=== PATIENT | female | born 1990 | race African-American/Black ===

== ENCOUNTER 2023-09-28 04:27 | Inpatient (IN) | payer OTHER, SELFPAY ==
[2023-09-28] VITALS (172 sets, daily range): BP systolic 87–161; BP diastolic 57–118; PULSE 69–126; RESP 18–20; TEMP 36.1–36.8; O2SAT 92–100; BMI 31.8
[2023-09-28 05:08] LABS: Basophils Percent Auto 0.2 % (0.2-1.2); Eosinophils Percent Auto 0.2 % (0-4.4); Hematocrit 36.5 % (37.0-47.0); Hemoglobin 12.4 g/dL (12.0-15.0); Immature Granulocyte Absolute 0.19 K/mm3 (0.00-0.031); Immature Granulocyte Percent A 2.2 % (0-0.5); Lymphocytes Absolute Auto 1.59 K/mm3 (0.9-3.2); Lymphocytes Percent Auto 18.1 % (18.3-44.2); Mean Corpuscular Hemoglobin 31.5 pg (26-34); Mean Corpuscular Volume 92.6 fl (80-100); Mean Platelet Volume 9.6 fl (7.4-10.4); Monocytes Absolute Auto 0.8 K/mm3 (0.1-0.6); Monocytes Percent Auto 9.2 % (2.6-8.5); Neutrophils Absolute Auto 6.1 K/mm3 (1.3-6.7); Neutrophils Percent Auto 70.1 % (45.5-73.1); Platelet Count Result 234 k/mm3 (150-375); Red Blood Count 3.94 M/mm3 (4.2-5.4); Red Cell Distribution Width 12.7 % (11.5-14.5); White Blood Count 8.8 K/mm3 (4.5-10.0)
[2023-09-28] MEDS: LACTATED RINGERS 1,000 ML 125 ML IV CONT ×2 (05:15→06:36)
[2023-09-28] MEDS: fentaNYL CITRATE INJ (*CRX) 100 MCG/2 ML VIAL 50 MCG IV PUSH (05:22)
--- NOTE | 2023-09-28 05:27 | LDADM ---
This patient, TIERRA MCCORD, was admitted to Labor/Delivery/Recovery 103 on 09/28/23 at 04:27. Plans for labor, pain management and were discussed with patient. Patient/family oriented to hospital policies and general routines including ID bracelet, bed and alarms, visiting hours, pain management, procedures, bathroom and other care routines, personal items, smoking policy, room service/diet and guest tray routines, infant security routines, and visiting hours. Patient/Family are encouraged to report perceived risks to care and to ask questions if they do not understand what they are told or what they should do. See OBIX for further documentation.
--- NOTE | 2023-09-28 06:31 | PM.IMHP ---
H&P: HPI History of Present Illness Date/Time: 09/28/23 06:31 Chief Complaint: Rupture of membranes at term Narrative: 32-year-old 2 para 0 whose last menstrual period was , EDC is 10/08/2023, presents at 38 half weeks gestation with spontaneous rupture membranes prior to admission. She was a 2nd trimester transfer but has ultrasounds have shown good growth with normal diabetic screen and negative group B strep. She does desire epidural PMFSH Family History Family History Other No pertinent family history Social History Social History Smoking status: Never smoker Substance use: never Do You Feel Safe in your Home?: Yes Lack of Transportation: No Lack of Food: Never True Current Housing: I Have Housing Concerned About Future Housing: No Difficulty Paying Gas/Electric Bills: No Difficulty Paying for Meds: No Currently Unemployed: No Education: Associate Degree Difficulty w/ Childcare or Family Care: No Spiritual care concerns: No Meds Home Medications and Allergies Home Medications Medication Instructions Recorded Confirmed Type vits no.126-ferrous fum 1 tablet PO DAILY 09/07/23 09/07/23 History 28 mg iron-folic acid 800 mcg tablet (Classic ) Allergies Allergy/AdvReac Type Severity Reaction Status Date / Time No Known Allergies Allergy Verified 09/07/23 13:37 Vital Signs Vital Signs - 24 hr 09/28/23 05:18 09/28/23 05:23 09/28/23 05:28 Temperature Pulse Rate 81 Blood Pressure 87/59 L Pulse Oximetry 97 96 97 Oxygen Delivery 09/28/23 05:31 09/28/23 05:33 09/28/23 05:38 Temperature Pulse Rate 90 Blood Pressure 125/83 Pulse Oximetry 98 99 Oxygen Delivery 09/28/23 05:00 09/28/23 05:43 09/28/23 05:47 Temperature 97.8 F Pulse Rate 77 Blood Pressure 124/104 H Pulse Oximetry 99 Oxygen Delivery 09/28/23 05:48 09/28/23 05:53 09/28/23 05:58 Temperature Pulse Rate Blood Pressure Pulse Oximetry 100 99 100 Oxygen Delivery 09/28/23 06:00 09/28/23 06:03 09/28/23 06:08 Temperature Pulse Rate 72 Blood Pressure 130/86 Pulse Oximetry 99 100 Oxygen Delivery 09/28/23 06:13 09/28/23 06:15 09/28/23 06:18 Temperature Pulse Rate 101 H Blood Pressure 158/103 H Pulse Oximetry 100 100 Oxygen Delivery 09/28/23 06:23 09/28/23 06:28 09/28/23 05:27 Temperature Pulse Rate Blood Pressure Pulse Oximetry 99 100 Oxygen Delivery Room Air Exam Const: General: cooperative, healthy appearing and comfortable Nutritional Appearance: average body habitus Orientation/consciousness: oriented to person, oriented to place and oriented to time Resp: Effort & Inspection: normal respiratory effort Cardio: Rate: regular rate Rhythm: regular rhythm Heart sounds: S1 normal heart sound present and S2 normal heart sound present GI: Inspection: normal to inspection ( soft gravid uterus) : External Female Exam: normal external appearance Speculum Exam - Vagina: normal appearance of the vagina Speculum Exam - Cervix: normal appearance of the cervix ( cervix 3 / 70/-2. Clear fluid seen. FHTs reassuring) H&P: Results Labs Labs: Short CBC 09/28/23 Range/Units 05:02 WBC 8.8 (4.5-10.0) K/mm3 Hgb 12.4 (12.0-15.0) g/dL Hct 36.5 L (37.0-47.0) % Plt Count 234 (150-375) k/mm3 Assessment and Plan Assessment and plan (1) Term : Code(s): Z34.90 - Encounter for supervision of normal , unspecified, unspecified trimester Status: Acute (2) Spontaneous rupture of membranes: Status: Acute Plan will begin Pitocin augmentation. Spontaneous vaginal delivery is expected. She is an epidural candidate
[2023-09-28] MEDS: OXYTOCIN 30 UNITS/NS 500 ML 30 UNITS/500 ML BAG IV CONT (06:35)
--- NOTE | 2023-09-28 07:14 | WPDANESEPPF ---
Anes - Initial Pre Proc Eval Procedure: labor epidural Date/Time: 09/28/23 07:14 Surgeon: Ildefonso Park MD Pre Op Diagnosis: labor pain Pre Op Diagnosis: SROM Patient Data Age: 32 Gender: F Height: 1.73 m Weight: 95 kg Last Vital Signs Temp 36.6 C 09/28/23 05:00 Pulse 82 09/28/23 07:00 BP 106/70 09/28/23 07:00 Pulse Ox 99 09/28/23 07:13 O2 Del Method Room Air 09/28/23 05:27 Allergies Allergy/AdvReac Type Severity Reaction Status Date / Time No Known Allergies Allergy Verified 09/07/23 13:37 Home Medications Medication Instructions Recorded Confirmed Type vits no.126-ferrous fum 1 tablet PO DAILY 09/07/23 09/07/23 History 28 mg iron-folic acid 800 mcg tablet (Classic ) Laboratory Tests 09/28/23 05:02 WBC 8.8 K/mm3 (4.5-10.0) RBC 3.94 L M/mm3 (4.2-5.4) Hgb 12.4 g/dL (12.0-15.0) Hct 36.5 L % (37.0-47.0) MCV 92.6 fl (80-100) MCH 31.5 pg (26-34) MCHC 34.0 g/dl (32-36) RDW 12.7 % (11.5-14.5) Plt Count 234 k/mm3 (150-375) MPV 9.6 fl (7.4-10.4) Immature Gran % (Auto) 2.2 H % (0-0.5) Neut % (Auto) 70.1 % (45.5-73.1) Lymph % (Auto) 18.1 L % (18.3-44.2) [place] % (Auto) 9.2 H % (2.6-8.5) Eos % (Auto) 0.2 % (0-4.4) Baso % (Auto) 0.2 % (0.2-1.2) Lymph # (Auto) 1.59 K/mm3 (0.9-3.2) [place] # (Auto) 0.8 H K/mm3 (0.1-0.6) Eos # (Auto) 0.0 K/mm3 (0-0.3) Baso # (Auto) 0.0 K/mm3 (0.0-0.1) Abs Immat Gran (auto) 0.19 H K/mm3 (0.00-0.031) Absolute Neuts (auto) 6.1 K/mm3 (1.3-6.7) Absolute Nucleated RBC 0.0 K/mm3 (0.0-0.012) Nucleated RBC % 0.0 % (0.0-0.2) RPR Pending Blood Type O Positive Antibody Screen Negative : gestational age (LYN[place] 10/08/23) Patient hx anesthesia problems: none Family hx anesthesia problems: none Results Review: All pre-operative results and documents have been reviewed as part of the pre-operative evaluation. [facility] Family History Family History Other No pertinent family history Social History Social History Smoking status: Never smoker Substance use: never Do You Feel Safe in your Home?: Yes Lack of Transportation: No Lack of Food: Never True Current Housing: I Have Housing Concerned About Future Housing: No Difficulty Paying Gas/Electric Bills: No Difficulty Paying for Meds: No Currently Unemployed: No Education: Associate Degree Difficulty w/ Childcare or Family Care: No Spiritual care concerns: No Anes - Eval Final PreProcedure Day of Procedure 09/28/23 07:14 Neurological: alert and oriented Last oral intake: >/= 8 hours ASA classification: II Emergent: no Anesthetic plan: proceed Anesthesia type and monitoring: regional epidural Results Review: All pre-operative results and documents have been reviewed as part of the pre-operative evaluation. Informed Consent: The patient's anesthetic plan and its attendant risks and benefits were discussed with the patient/family/POA. Questions were solicited and answers provided to the satisfaction of the patient/family/POA.
--- NOTE | 2023-09-28 10:11 | PM.OBPNLAB ---
Pain Control Date/time seen: 09/28/23 10:11 Pain control: tolerating well and epidural Pelvic Exam Dilation (cm): 8 station: 0 Amniotic membrane status: Leaking
--- NOTE | 2023-09-28 12:54 | PM.OBPRVD ---
OB - Vaginal Delivery Note Procedure Delivery date: 09/28/23 Induction method: None Delivery augmentation: Pitocin Delivery monitor: External FHT and Internal Uterine Route of delivery: Episiotomy description: None Laceration Description: None Quantitative Blood Loss (ml): 61 Anesthesia type: Epidural Disposition: Floor Complications: No immediate complications Baby Date of : 09/28/23 Time of : 12:41 Weeks of gestation at delivery: 38 gender: Male Weight (pounds): 7 Weight (ounces): 10 presentation: vertex position: Right Occiput Posterior Placenta delivery description: Spontaneous Cord Vessel Description: 3 Vessels score one minute: 8 score five minutes: 9
--- NOTE | 2023-09-28 12:56 | PM.DS ---
DS: Admitting Diagnosis Discharge Date 09/30/2023 Admitting Diagnosis Term DS: Discharge Diagnosis Discharge Diagnosis (1) Spontaneous rupture of membranes: Status: Acute (2) Term : Code(s): Z34.90 - Encounter for supervision of normal , unspecified, unspecified trimester Status: Acute DS: Summary Hospital Course Reason for hospitalization: patient was admitted in active labor at 38 weeks gestation Hospital Course: patient underwent spontaneous vaginal delivery. Her hospital course unremarkable. She remained afebrile. She was up, voiding without difficulty, eating regular diet, ambulating, generally without complaints. Time Spent with Patient Time attestation: Total time spent providing and/or coordinating discharge services: Exam Const: General: cooperative, healthy appearing and comfortable Nutritional Appearance: average body habitus Orientation/consciousness: oriented to person, oriented to place and oriented to time Resp: Effort & Inspection: normal respiratory effort Cardio: Rate: regular rate Rhythm: regular rhythm Heart sounds: S1 normal heart sound present and S2 normal heart sound present GI: Inspection: normal to inspection DS: Data Data Completed and Pending Labs on day of discharge: Labs from last 24 hours 09/28/23 05:02 WBC 8.8 RBC 3.94 L Hgb 12.4 Hct 36.5 L MCV 92.6 MCH 31.5 MCHC 34.0 RDW 12.7 Plt Count 234 MPV 9.6 Immature Gran % (Auto) 2.2 H Neut % (Auto) 70.1 Lymph % (Auto) 18.1 L [place] % (Auto) 9.2 H Eos % (Auto) 0.2 Baso % (Auto) 0.2 Lymph # (Auto) 1.59 [place] # (Auto) 0.8 H Eos # (Auto) 0.0 Baso # (Auto) 0.0 Abs Immat Gran (auto) 0.19 H Absolute Neuts (auto) 6.1 Absolute Nucleated RBC 0.0 Nucleated RBC % 0.0 RPR Pending Blood Type O Positive Antibody Screen Negative Discharge Plan Discharge Attending physician on discharge: Ildefonso Alejandro Discharging Clinician: Flavia Wood Anticipated Discharge Date/Time: 09/30/23 09:35 Patient Disposition: Home, Self-Care Activity: may shower and pelvic rest Diet: as tolerated Wound Care Instructions: follow printed instructions Discharge Instructions: Education: Mom and Baby Guide Given to: Mother Follow-Up: Call your delivering provider's office for an appointment to be seen in: 4 Weeks Mom and baby should come to the [facility] for the follow-up appointment. Appointment Date/Time: October 01, 2023 at 8:00 am What to expect at your follow-up visit: Physical Assessment Call [phone] if you are unable to keep your appointment time. BREAST CARE: * Wear a snug supportive bra. * For engorgement discomfort: * May apply ice packs EPISIOTOMY/PERINEAL CARE: * Until bleeding stops, use your yecenia bottle after urinating * Change your pad frequently throughout the day * No tub baths until seen by your physician - You may shower ACTIVITY: * Rest as much as possible. * Do not exercise or lift anything heavier than your baby (such as laundry or other children.) * Avoid stairs or driving as much as possible. * Do not put anything into the vagina. No douching, tampons, or sexual activity until seen by physician. NOTIFY PHYSICIAN IF YOU HAVE ANY QUESTIONS OR IF ANY OF THE FOLLOWING SYMPTOMS OCCUR: * If your perineum becomes red, swollen, or more painful than what you have experienced in the hospital. * If your vaginal bleeding becomes foul smelling. * If your vaginal bleeding becomes more heavy than a period or if your bleeding changes from pink to bright red. However, you may pass an occasional walnut-sized clot once or twice for the first week . * If you experience a sharp, shooting pain in you calves. * If you discover a hard, reddened area on your breast or if you experience flu-like symptoms. DIET: * Eat regular, well-balanced meals. * Drink plenty
[2023-09-28] MEDS: OXYTOCIN 30 UNITS/NS 500 ML 30 UNITS/500 ML BAG 125 UNITS IV CONT (13:13)
[2023-09-28] MEDS: ONDANSETRON INJ 4 MG/2 ML VIAL IV PUSH (13:50)
[2023-09-28] MEDS: WITCH HAZEL 40 PADS 1 PAD TOPICAL (14:54)
[2023-09-28] MEDS: BENZOCAINE 20% AER SPR (*SP) 56 GM CAN 1 SPRAY TOPICAL (14:55)
[2023-09-28 16:55] LABS: Rapid Plasma Reagin Non-Reactive (NonReactive)
[2023-09-28] MEDS: POLYSACCHARIDE IRON COMPLEX 150 MG CAPSULE PO (17:36)
[2023-09-28] MEDS: DOCUSATE SODIUM 100 MG CAPSULE PO (17:36)
[2023-09-28] MEDS: IBUPROFEN 600 MG TABLET PO (17:36)
[2023-09-29] MEDS: IBUPROFEN 600 MG TABLET PO ×4 (02:26→22:19)
[2023-09-29 04:35] VITALS: BP 130/82; PULSE 80; RESP 16; TEMP 36
[2023-09-29 05:30] LABS: Hematocrit 32.4 % (37.0-47.0); Hemoglobin 10.8 g/dL (12.0-15.0)
--- NOTE | 2023-09-29 07:46 | PM.OBPNVD ---
OB - PN: Subj Subjective Date/time seen: 09/29/23 07:46 Patient comments: no complaints and pain well controlled baby status: doing well and nursing well OB - PN: Obj Data Labs 09/29/23 04:55 Labs: Laboratory Results - last 24 hr 09/28/23 09/29/23 05:02 04:55 Hgb 10.8 L Hct 32.4 L RPR Non-reactive OB - PN A/P Plan day: 1 Plan: routine care Time Spent With Patient Time: Total time spent is greater than 50% in coordination of care (as documented) at patient's floor/unit and/or counseling patient: Time with patient: less than 15 minutes Exam Const: General: cooperative, healthy appearing and comfortable Nutritional Appearance: average body habitus Orientation/consciousness: oriented to person, oriented to place and oriented to time HENMT: Head: normal to inspection Resp: Effort & Inspection: normal respiratory effort Cardio: Rate: regular rate Rhythm: regular rhythm Heart sounds: S1 normal heart sound present and S2 normal heart sound present GI: Inspection: normal to inspection
--- NOTE | 2023-09-29 08:02 | WPDANLDPN2 ---
Anes-Prog Note L&D Date/Time: 09/29/23 08:02 Comfortable throughout: labor and delivery Neuraxial method: epidural Epidural/Spinal procedure site: clean & non-tender Neuro status: Neuro function grossly intact. Cardiovascular status: normal Respiratory status: normal Airway patency: baseline Mental status: baseline Post-Op hydration status: normal Vital Signs: Last Vital Signs Temp 36.0 C L 09/29/23 04:35 Pulse 80 09/29/23 04:35 Resp 16 09/29/23 04:35 BP 130/82 09/29/23 04:35 Pulse Ox 100 09/28/23 15:30 O2 Del Method Room Air 09/28/23 15:30 Pain score (VAS): 08/22 Post-procedural complaints: none Patient feedback: Patient satisfied with anesthetic care.
[2023-09-29 08:34] VITALS: TEMP 37
[2023-09-29] MEDS: MULTIVIT/MIN/PREN/FOL AC/IRON TABLET 1 TAB PO (08:35)
[2023-09-29 08:45] VITALS: BP 105/58; PULSE 73; RESP 18; TEMP 37; O2SAT 98
[2023-09-29] MEDS: ACETAMINOPHEN 325 MG TABLET 650 MG PO (10:26)
--- NOTE | 2023-09-29 17:01 | PC.NURSE ---
On 09/29/23, the student, Gini Gallo, provided care and completed [facility] documentation on this patient. I have reviewed the student's documentation and agree with the findings.
[2023-09-29 22:23] VITALS: BP 118/72; PULSE 85; RESP 18; TEMP 36.3; O2SAT 99
[2023-09-30] MEDS: IBUPROFEN 600 MG TABLET PO (06:04)
[2023-09-30] MEDS: MEASLES,MUMPS,RUBELLA VACCINE 0.5 ML VIAL SUB-Q (07:48)
[2023-09-30] MEDS: ACETAMINOPHEN 325 MG TABLET 650 MG PO (07:55)
[2023-09-30] MEDS: DIBUCAINE 1% OINTMENT 30 GM TUBE 1 APPLIC TOPICAL (07:56)
[2023-09-30 08:05] VITALS: BP 133/81; PULSE 109; RESP 18; TEMP 36.4; O2SAT 100
--- NOTE | 2023-09-30 09:34 | PM.OBPNVD ---
OB - PN: Subj Subjective Date/time seen: 09/30/23 09:25 Interval history: Doing well. Urinating without difficulty. Denies passing any large clots. Denies dizziness with ambulating. Tolerating po food and fluids. Bonding with . Patient comments: no complaints and pain well controlled baby status: doing well and bottle feeding well [place] feeding status: exclusively bottle feeding OB - PN: Obj Data Labs 09/29/23 04:55 OB - PN A/P Plan day: 2 Plan: discharge home Time Spent With Patient Time: Total time spent is greater than 50% in coordination of care (as documented) at patient's floor/unit and/or counseling patient: Review of Systems Review of Systems: All systems reviewed & are unremarkable except as noted in HPI and below Exam Narrative: Alert and oriented. Mood is pleasant and cooperative. Perineum with minimal edema. Fundus firm and below umbilicus. Const: General: cooperative, healthy appearing, no acute distress and alert Orientation/consciousness: patient oriented x3 Limitations: no limitations Resp: Effort & Inspection: normal respiratory effort and able to speak in complete sentences Auscultation: clear to auscultation bilaterally Cardio: Rate: regular rate GI: Inspection: normal to inspection Auscultation: normal bowel sounds : General: Yes bladder normal to palpation External Female Exam: other (lochia WNL) Bimanual exam- vagina & uterus: bladder normal to palpation Other: Fundus firm and below U Skin: General skin exam: normal color and no rashes or lesions noted Neuro: General: patient oriented x3 and moves all extremities Cognition (Neuro): normal cognition Extrem: General: normal to inspection and no calf tenderness Psych: Appearance: grossly normal Mental Status: mental status grossly normal Affect: normal affect Thought process: Normal thought process present
--- NOTE | 2023-09-30 11:18 | PC.NURSE ---
Patient instructed on viewing the discharge video Mother & Baby Care, The First Two Weeks . Patient was given the opportunity and encouraged to ask questions. Patient verbalized understanding of information shared and has been given the mother/baby guide for home reference.
[2023-10-01 08:18] VITALS: BP 130/75; PULSE 71; RESP 18; TEMP 36.6; O2SAT 100
== END 2023-09-30 15:43 | disposition home or self-care (01) | DRG 560 ==
LOC: ANHLDR 12:58 → ANHOB2 15:34
PROVIDERS: Admitting Provider Obstetrics & Gynecology; Visit Provider Obstetrics & Gynecology
DX: O80 Encounter for full-term uncomplicated delivery (principal); Z3A.38 38 weeks gestation of pregnancy; Z37.0 Single live birth
CPT/HCPCS: 36415; 85014; 85018; 85025; 86592; 86850; 86900; 86901; 90710; A9270; J2405; J2590; J3010; J7120